=== PATIENT | male | born 1985 | race African-American/Black ===

== ENCOUNTER 2017-06-08 08:29 | Emergency (ER) | payer OTHER ==
[~2017-06-08] VITALS: Ht 175.3 cm; Wt 98.0 kg
[~2017-06-08 08:29] MED LIST: BACTRIM DS1 TAB PO; DOXYCYCL HYC100 M4 PO; FLEXERIL PO; LORTAB 10 PO; NAPROSYN500 MG OR; NAPROSYN500 MG PO; NO HOME MEDS
[2017-06-08] MEDS ORDERED: MOTRIN800 MG PO (09:31)
[2017-06-08] MEDS ORDERED: NEXIUM40 M1 PO (09:31)
[2017-06-08 09:50] VITALS: BP 173/100
== END 2017-06-08 09:55 | disposition home or self-care (01) | DRG 554 ==
LOC: ED 08:29
PROC: 2W3CX1Z Immobilization of Right Lower Arm using Splint (ICD-10-PCS; principal; 2017-06-08)
DX: M19.031 Primary osteoarthritis, right wrist (principal); R09.89 Other specified symptoms and signs involving the circulatory and respiratory systems

== ENCOUNTER 2019-07-18 07:46 | Emergency (ER) | payer OTHER ==
[~2019-07-18] VITALS: Ht 175.3 cm; Wt 105.5 kg
[~2019-07-18 07:46] MED LIST changes: +MOTRIN800 MG PO; +NEXIUM40 M1 PO
[2019-07-18] MEDS ORDERED: ZPAK PO (08:54)
[2019-07-18] MEDS ORDERED: NORVASC2.5 M1 PO (08:54)
[2019-07-18 09:12] VITALS: BP 159/102
== END 2019-07-18 09:25 | disposition home or self-care (01) | DRG 203 ==
LOC: ED 07:46
DX: J40 Bronchitis, not specified as acute or chronic (principal); I10 Essential (primary) hypertension; T46.5X6A Underdosing of other antihypertensive drugs, initial encounter; Z91.128 Patient's intentional underdosing of medication regimen for other reason